=== PATIENT | female | born 2000 | race Caucasian/White ===

== ENCOUNTER 2021-04-20 17:32 | Emergency (ER) | payer SELFPAY ==
[2021-04-20 19:32] LABS: Urine Blood Trace-intact (Negative); Urine Glucose Negative (Negative); Urine Protein Negative (Negative); Urine Specific Gravity 1.015 (1.005-1.030)
[2021-04-20 19:47] LABS: Urine Bacteria <20 /HPF (<20); Urine RBC <5 /HPF (NONE SEEN)
[2021-04-20 19:55] LABS: Absolute Lymphocytes (CBC) 4.3 K/uL (0.7-4.9); Basophils % 0.1 % (0-1.3); Hematocrit 34.6 % (36.0-45.0); Lymphocytes % 20.6 % (15.3-44.8); MPV 8.2 fL (7.6-11.3)
[2021-04-20 19:57] LABS: ALT/SGPT 24 U/L (12-78); AST/SGOT 11 U/L (15-37); Albumin 3.7 g/dL (3.4-5.0); Alkaline Phosphatase 102 U/L (45-117); BUN Blood Urea Nitrogen 9 mg/dL (7-18); Bicarbonate 26 mmol/L (21-32); Bilirubin Direct 0.3 mg/dL (0-0.2); Bilirubin Total 1.6 mg/dL (0.2-1.0); Glucose Level 104 mg/dL (74-106); Lipase 52 U/L (73-393); Potassium 3.5 mmol/L (3.5-5.1); Protein, Total 8.6 g/dL (6.4-8.2); Sodium Level 133 mmol/L (136-145)
[2021-04-20 20:23] LABS: Blood Morphology Comment NOT SEEN (NOT SEEN); Platelet Estimate ADEQ
--- NOTE | 2021-04-20 20:27 | RAD REPORT ---
EXAM DESCRIPTION: CT - Abdomen Pelvis W Contrast - 04/20/2021 8:09 pm CLINICAL HISTORY: Abdominal pain COMPARISON: none. TECHNIQUE: Computed axial tomography of the abdomen pelvis was obtained. 100 cc Isovue-300 was admin istered intravenously. Oral contrast was not requested which limits evaluation of bowel. All CT scans are performed using dose optimization technique as appropriate and may include automated exposure control or mA/KV adjustment according to patient size. FINDINGS: The liver, spleen, pancreas, adrenal and left kidney appear unremarkable. Small low-density areas present in the right kidney reaching the periphery. There is no evidence of diverticulitis. Normal appendix 2 centimeter right ovarian cyst without significant free fluid IMPRESSION: 2 centimeter right ovarian cyst without significant free fluid . Small low-density area within the right kidney reaching the periphery may indicate a mild pyelonephr itis
[2021-04-20] MEDS ORDERED: NA CHLORIDE 0.9% 1,000 ML ONE (20:30)
[2021-04-20] MEDS ORDERED: KETOROLAC 30 MG/ML INJ ONE (20:30)
[2021-04-20] MEDS ORDERED: ONDANSETRON 4 MG/2 ML VIAL ONE (20:30)
[2021-04-20 20:48] LABS: Urine Specific Gravity/Preg 1.015 (1.005-1.030)
--- NOTE | 2021-04-20 21:09 | ER ---
Nurse's Notes [facility] Name: Parul Davila Age: 20 yrs Sex: Female : 2000 Arrival Date: 04/20/2021 Time: 17:35 Bed 15 Private MD: Diagnosis: Tubulo-interstitial nephritis, not specified as acute or chronic;Other ovarian cysts Presentation: 04/20 18:03 Chief complaint: Patient states: Noticed dark red blood in stool yesterday when ll1 straining to have BM. Lower abd pain with nausea started today. No dysuria. LMP:last Sunday. Coronavirus screen: Client denies travel out of the [place] in the last 14 days. At this time, the client does not indicate any symptoms associated with coronavirus-19. Ebola Screen: Patient denies travel to an Ebola-affected area in the 21 days before illness onset. Initial Sepsis Screen: Does the patient meet any 2 criteria? HR > 90 bpm. No. Patient's initial sepsis screen is negative. Does the patient have a suspected source of infection? Yes: Acute abdominal pain. Risk Assessment: Do you want to hurt yourself or someone else? Patient reports no desire to harm self or others. Onset of symptoms was April 19, 2021. 18:03 Method Of Arrival: Ambulatory ll1 18:03 Acuity: ELLIOTT 3 ll1 Historical: - Allergies: 18:05 No Known Allergies; ll1 - PMHx: 18:05 None; ll1 - PSHx: 18:05 None; ll1 - Immunization history:: Flu vaccine is up to date. - Social history:: Smoking status: Patient denies any tobacco usage or history of. Screenin:05 Abuse screen: Denies threats or abuse. Nutritional screening: No deficits noted. tw2 Tuberculosis screening: No symptoms or risk factors identified. Fall Risk None identified. Assessment: 19:10 General: Appears in no apparent distress. Behavior is calm, cooperative, appropriate fu for age, Denies fever, feeling ill, fatigue, chills. Pain: Complains of pain in lowr abdomen Pain does not radiate. Pain currently is 9 out of 10 on a pain scale. Quality of pain is described as crampy, Pain began 1 day ago. Neuro: Level of Consciousness is awake, alert, obeys commands, Oriented to person, place, time, situation, Bale Piler are equal bilaterally Moves all extremities. Gait is steady, Speech is normal, Facial symmetry appears normal. Cardiovascular: Denies chest pain, lightheadedness, vomiting. Respiratory: Respiratory effort is even, unlabored, Respiratory pattern is regular. GI: Reports lower abdominal pain, bloody stool, nausea. : Denies burning with urination. EENT: No signs and/or symptoms were reported regarding the EENT system. Derm: No signs and/or symptoms reported regarding the dermatologic system. Musculoskeletal: No signs and/or symptoms reported regarding the musculoskeletal system. 20:30 Reassessment: Patient and/or family updated on plan of care and expected duration. Pain fu level reassessed. Patient is alert, oriented x 3, equal unlabored respirations, skin warm/dry/pink. Patient states symptoms have improved. Vital Signs: 18:03 BP 128 / 83; Pulse 118; Resp 18; Temp 100.0; Pulse Ox 96% ; Weight 74.84 kg; Height 5 ll1 ft. 3 in. (160.02 cm); Pain 10/10; 19:06 BP 128 / 77; Pulse 119; Resp 19; Pulse Ox 100% on R/A; Pain 9/10; fu 19:45 BP 118 / 77; Pulse 111; Resp 19; Pulse Ox 100% on R/A; Pain 8/10; fu 20:30 BP 117 / 74; Pulse 109; Resp 18; Pulse Ox 99% on R/A; fu 18:03 Body Mass Index 29.23 (74.84 kg, 160.02 cm) ll1 ED Course: 17:35 Patient arrived in ED. ds1 18:05 Triage completed. ll1 18:05 Arm band placed on. ll1 18:54 Bed in low position. Call light in reach. Pulse ox on. NIBP on. tw2 19:10 Migdalia Huitron F[facility]-C [facility]. kb 19:10 James Phelan MD is Attending Physician. kb 19:10 Nathaniel Stephenson, JEAN PAUL is Primary Nurse. fu 19:34 Inserted saline lock: 20 gauge in right antecubital area, using aseptic technique. jm8 20:01 Notified Nurse Practitioner and/or Physician Leak Patcher of a critical lab result(s), bb WBCs of 20.8. Migdalia Huitron METAL FURNITURE PANEL COVERER notified. 20:09 CT Abd/Pelvis - IV Contrast Only In Process Unspecified. EDMS 21:45 No provider procedures requiring assistance completed. IV discontinued, bleeding fu controlled, Pressure dressing applied. Administered Medications: 20:20 Drug: NS 0.9% 1000 ml Route: IV; Rate: 1000 ml; Site: right antecubital; fu 21:59 Follow up: Response: No adverse reaction; IV Intake: 1000ml fu 20:20 Drug: Zofran (Ondansetron) 4 mg Route: IVP; Site: right antecubital; fu 21:20 Follow up: Response: No adverse reaction fu 20:20 Drug: Ketorolac 30 mg Route: IVP; Site: right antecubital; fu 21:20 Follow up: Response: Pain is decreased fu Intake: 21:59 IV: 1000ml; Total: 1000ml. fu Outcome: 21:08 Discharge ordered by . lydia 21:45 Discharged to home ambulatory. fu 21:45 Condition: good 21:45 Discharge instructions given to patient, Instructed on discharge instructions, Demonstrated understanding of instructions, Prescriptions given X 2. 21:50 Patient left the ED. fu Signatures: Dispatcher [employer] EDMS Migdalia Huitron, THERMAL INTELLIGENCE ANALYST-C THERMAL INTELLIGENCE ANALYST-Ckb Miroslava Almanzar ds1 Bailee Lee RN RN bb Meena Reyes RN RN tw2 Nathaniel Stephenson, RN Gerardo Batista RN RN ll1 Edin Bledsoe RN RN [id number]
--- NOTE | 2021-04-20 21:09 | EDPHYS ---
Physician Documentation [facility] Name: Parul Davila Age: 20 yrs Sex: Female : 2000 Arrival Date: 04/20/2021 Time: 17:35 Bed 15 Private MD: ED Physician James Phelan HPI: 04/20 20:35 This 20 yrs old Female presents to ER via Ambulatory with complaints of kb Bloody Stools. 20:35 The patient presents with abdominal pain in the lower abdomen. Onset: The kb symptoms/episode began/occurred this morning. The symptoms do not radiate. Associated signs and symptoms: Pertinent positives: fever, nausea, Pertinent negatives: constipation, vomiting. The symptoms are described as constant. Modifying factors: The symptoms are alleviated by nothing, the symptoms are aggravated by nothing. Severity of pain: At its worst the pain was moderate in the emergency department the pain is unchanged. The patient has not experienced similar symptoms in the past. The patient has not recently seen a physician. Historical: - Allergies: 18:05 No Known Allergies; ll1 - PMHx: 18:05 None; ll1 - PSHx: 18:05 None; ll1 - Immunization history:: Flu vaccine is up to date. - Social history:: Smoking status: Patient denies any tobacco usage or history of. ROS: 20:33 ENT: Negative for injury, pain, and discharge, Cardiovascular: Negative for chest pain, kb palpitations, and edema, Respiratory: Negative for shortness of breath, cough, wheezing, and pleuritic chest pain, MS/Extremity: Negative for injury and deformity, Skin: Negative for injury, rash, and discoloration, Neuro: Negative for headache, weakness, numbness, tingling, and seizure, Psych: Negative for depression, anxiety, suicide ideation, homicidal ideation, and hallucinations. 20:33 Constitutional: Positive for fever, malaise, Negative for body aches, chills, fatigue, poor PO intake, weight loss. 20:33 Abdomen/GI: Positive for abdominal pain, nausea. Exam: 20:34 Constitutional: This is a well developed, well nourished patient who is awake, alert, kb and in no acute distress. Head/Face: Normocephalic, atraumatic. ENT: Moist Mucous membranes Cardiovascular: Regular rate and rhythm with a normal S1 and S2. No gallops, murmurs, or rubs. No pulse deficits. Respiratory: Respirations even and unlabored. No increased work of breathing, no retractions or nasal flaring. Skin: Warm, dry with normal turgor. Normal color. MS/ Extremity: Pulses equal, no cyanosis. Neurovascular intact. Full, normal range of motion. Neuro: Awake and alert, GCS 15, oriented to person, place, time, and situation. Moves all extremities. Normal gait. Psych: Awake, alert, with orientation to person, place and time. Behavior, mood, and affect are within normal limits. 20:34 Abdomen/GI: Inspection: abdomen appears normal, Bowel sounds: normal, Palpation: soft, in all quadrants, mild abdominal tenderness, in the right upper quadrant and left upper quadrant, moderate abdominal tenderness, in the right lower quadrant and left lower quadrant. Vital Signs: 18:03 BP 128 / 83; Pulse 118; Resp 18; Temp 100.0; Pulse Ox 96% ; Weight 74.84 kg; Height 5 ll1 ft. 3 in. (160.02 cm); Pain 10/10; 19:06 BP 128 / 77; Pulse 119; Resp 19; Pulse Ox 100% on R/A; Pain 9/10; fu 19:45 BP 118 / 77; Pulse 111; Resp 19; Pulse Ox 100% on R/A; Pain 8/10; fu 20:30 BP 117 / 74; Pulse 109; Resp 18; Pulse Ox 99% on R/A; fu 18:03 Body Mass Index 29.23 (74.84 kg, 160.02 cm) ll1 MDM: 19:10 Patient medically screened. kb 20:34 Data reviewed: vital signs, nurses notes. Data interpreted: Pulse oximetry: on room air kb is 96 %. Interpretation: normal. Counseling: I had a detailed discussion with the patient and/or guardian regarding: the historical points, exam findings, and any diagnostic results supporting the discharge/admit diagnosis, lab results, radiology results, the need for outpatient follow up, a family practitioner, to return to the emergency department if symptoms worsen or persist or if there are any questions or concerns that arise at home. 04/20 19:13 Order name: Basic Metabolic Panel; Complete Time: 20:00 kb 04/20 19:13 Order name: CBC with Diff; Complete Time: 20:24 kb 04/20 19:13 Order name: Hepatic Function; Complete Time: 20:00 kb 04/20 19:13 Order name: Lipase; Complete Time: 20:00 kb 04/20 19:13 Order name: Urine Microscopic Only; Complete Time: 19:48 kb 04/20 19:31 Order name: Urine Dipstick-Ancillary; Complete Time: 19:38 EDMS 04/20 19:13 Order name: IV Saline Lock; Complete Time: 19:34 kb 04/20 19:32 Order name: Urine --Ancillary (enter results); Complete Time: 20:49 mw2 04/20 19:47 Order name: CT Abd/Pelvis - IV Contrast Only; Complete Time: 20:31 kb 04/20 19:48 Order name: Urine Culture EDMS 04/20 20:23 Order name: Manual Differential; Complete Time: 20:24 EDMS 04/20 19:13 Order name: Labs collected and sent; Complete Time: 19:34 kb 04/20 19:13 Order name: Urine Dipstick-Ancillary (obtain specimen); Complete Time: 19:34 kb 04/20 19:13 Order name: Urine Test (obtain specimen); Complete Time: 19:34 kb Administered Medications: 20:20 Drug: NS 0.9% 1000 ml Route: IV; Rate: 1000 ml; Site: right antecubital; fu 21:59 Follow up: Response: No adverse reaction; IV Intake: 1000ml fu 20:20 Drug: Zofran (Ondansetron) 4 mg Route: IVP; Site: right antecubital; fu 21:20 Follow up: Response: No adverse reaction fu 20:20 Drug: Ketorolac 30 mg Route: IVP; Site: right antecubital; fu 21:20 Follow up: Response: Pain is decreased fu Disposition: 22:08 Co-signature as Attending Physician, James Phelan MD I agree with the assessment and kdr plan of care. Disposition Summary: 04/20/21 21:08 Discharge Ordered Location: Home kb Condition: Stable kb Diagnosis - Tubulo-interstitial nephritis, not specified as acute or chronic kb - Other ovarian cysts kb Followup: kb - With: Emergency Department - When: As needed - Reason: Worsening of condition Followup: kb - With: Private Physician - When: 2 - 3 days - Reason: Recheck today's complaints, Continuance of care, Re-evaluation by your physician Discharge Instructions: - Discharge Summary Sheet kb - Pyelonephritis, Adult, [id number] kb - Ovarian Cyst, [id number] kb Forms: - Medication Reconciliation Form kb - Thank You Letter kb - Antibiotic Education kb - Prescription Opioid Use kb Prescriptions: - Augmentin 875-125 mg Oral Tablet - take 1 tablet by ORAL route every 12 hours for 10 days; 20 tablet; Refills: 0, kb Product Selection Permitted - Diclofenac Sodium 75 mg Oral tablet,delayed release (DR/EC) - take 1 tablet by ORAL route 2 times per day As needed; 30 tablet; Refills: 0, kb Product Selection Permitted Signatures: Dispatcher [employer] EDMigdalia Johnson, GOLF BALL WINDER-C GOLF BALL WINDER-James Bergman MD MD kdr Umadhay, Felix, RN RN Gerardo Valles RN RN ll1
[2021-04-20 22:39] VITALS: TEMP 100
[2021-04-20 22:43] VITALS: BP 117/74; O2SAT 99
== END 2021-04-20 21:50 | disposition home or self-care (01) ==
LOC: ER 17:32
DX: R10.30 Lower abdominal pain, unspecified (principal); N12 Tubulo-interstitial nephritis, not specified as acute or chronic; N83.299 Other ovarian cyst, unspecified side
CPT/HCPCS: 36415; 74177; 80048; 80076; 81003; 81015; 81025; 83690; 85025; 87086; 87088; 96374; 96375; 99284; J2405; J7030; Q9967